=== PATIENT | female | born 1955 | race Caucasian/White ===

== ENCOUNTER → 2017-08-01 | Outpatient (CLI) | payer BC ==
[~2017-08-01] MED LIST: CIPR500 PO; CONEST.3 PO; INSLI100I; INSLI100I SC; LEVSOD50; LISI5 PO; OLME20 PO; PRAV20 PO; VITAMIN D PO
[2017-08-02 14:05] LABS: Stool Occult Bld Immuno 1 Negative (NEGATIVE); Stool Occult Bld Immuno 2 Negative (NEGATIVE)
== END | disposition home or self-care (01) ==
LOC: LAB EV 19:20
PROVIDERS: Internal Medicine Gastroenterology
DX: K57.30 Diverticulosis of large intestine without perforation or abscess without bleeding (principal)
CPT/HCPCS: 82274

== ENCOUNTER → 2017-08-17 | Outpatient (CLI) | payer BC | LOC: LAB SHORT 13:09 → LAB EV 13:09 | DX: L08.9 Local infection of the skin and subcutaneous tissue, unspecified (principal) | CPT/HCPCS: 87070; 87075; 87077; 87147; 87186; 87205 ==

== ENCOUNTER 2017-09-24 05:43 | Day surgery (SDC) | payer BC ==
[~2017-09-24 05:43] MED LIST changes: +ALBU90OI INH; +CHLO25B PO; +EXEM25 PO; +LEVO-T75 MCG PO; +MELO7.5 PO; +MULTI VITAMIN1 EACH PO; +Nitrostat0.4 MG SL; +OSTERA TABLET1 EACH PO; +Omeprazole20 M1; +Omeprazole20 M1 PO; +ROSU10TA PO; +SUMA25 PO; +VENL150ER PO
== END 2017-09-24 12:00 | disposition home or self-care (01) ==
LOC: MHTC 05:43
DX: I25.118 Atherosclerotic heart disease of native coronary artery with other forms of angina pectoris (principal); R94.39 Abnormal result of other cardiovascular function study; E10.9 Type 1 diabetes mellitus without complications; E78.5 Hyperlipidemia, unspecified; I10 Essential (primary) hypertension; E78.00 Pure hypercholesterolemia, unspecified; Z82.49 Family history of ischemic heart disease and other diseases of the circulatory system; Z88.2 Allergy status to sulfonamides; Z88.6 Allergy status to analgesic agent; Z91.040 Latex allergy status; Z79.4 Long term (current) use of insulin; E03.9 Hypothyroidism, unspecified; Z85.3 Personal history of malignant neoplasm of breast; G47.30 Sleep apnea, unspecified
CPT/HCPCS: 82947; 93454; 99152; 99153; C1769; C1894; J1644; J2250; J3010; J7030; J7040; Q9967

== ENCOUNTER 2018-09-30 04:54 | Emergency (ER) | payer BC ==
[~2018-09-30] VITALS: Ht 165.1 cm; Wt 72.6 kg
[2018-09-30 07:11] LABS: BASOPHILS ABSOLUTE AUTO 0.02 K/mm3 (0.00-0.23); BASOPHILS PERCENT AUTO 0 % (0-2); EOSINOPHILS ABSOLUTE AUTO 0.02 K/mm3 (0.00-0.68); EOSINOPHILS PERCENT AUTO 0 % (0-6); Hematocrit 42.7 % (33.0-51.0); Hemoglobin 14.1 g/dL (11.5-16.0); IMMATURE GRAN ABSOLUTE AUTO 0.08 K/mm3 (0.00-0.10); IMMATURE GRAN PERCENT AUTO 1 % (0-1); LYMPHOCYTES ABSOLUTE AUTO 0.83 K/mm3 (0.84-5.20); LYMPHOCYTES PERCENT AUTO 6 % (21-46); MONOCYTES ABSOLUTE AUTO 0.94 K/mm3 (0.16-1.47); MONOCYTES PERCENT AUTO 6 % (4-13); Mean Corpuscular HGB 28.7 pg (26.0-34.0); Mean Corpuscular Volume 87 fL (80-100); Mean Platelet Volume 10.4 fL (9.1-12.4); NEUTROPHILS ABSOLUTE AUTO 13.24 K/mm3 (1.96-9.15); NEUTROPHILS PERCENT AUTO 88 % (41-73); Platelet Count 223 K/mm3 (150-400); RDW Coefficient Variation 12.1 % (11.7-14.2); RDW Standard Deviation 38.3 fL (35.1-46.3); Red Blood Cell Count 4.92 M/mm3 (3.80-5.20); White Blood Cell Count 15.13 K/mm3 (4.00-11.30)
[2018-09-30] MEDS ORDERED: ATORVASTATIN CA80 MG PO (07:18)
[2018-09-30 07:33] LABS: Alanine Aminotransfer (ALT/SGP 57 U/L (12-78); Albumin, Blood 3.9 g/dL (3.4-5.0); Alk Phos 110 U/L (50-136); Anion Gap 8 mmol/L (6-16); Aspartate Aminotrans (AST/SGOT 43 U/L (12-37); Bilirubin, Total 0.7 mg/dL (0.1-1.0); Blood Urea Nitrogen 49 mg/dL (8-24); Bun/Creatinine Ratio 68.8 (12.0-20.0); CO2, Blood 26 mmol/L (21-32); Chloride, Blood 103 mmol/L (98-108); Creatinine, Blood 0.71 mg/dL (0.40-1.00); Glomerular Filtration Rate >60 (60-); Glucose, Blood 235 mg/dL (70-99); Potassium, Blood 4.3 mmol/L (3.5-5.5); Sodium, Blood 137 mmol/L (136-145); Total Protein, Blood 7.9 g/dL (6.4-8.2)
[2018-09-30] MEDS ORDERED: ONDA4ODT MM (08:24)
== END 2018-09-30 08:44 | disposition home or self-care (01) ==
LOC: ER 04:54
PROVIDERS: Emergency Medicine
DX: K29.70 Gastritis, unspecified, without bleeding (principal); R11.2 Nausea with vomiting, unspecified; E11.9 Type 2 diabetes mellitus without complications; I10 Essential (primary) hypertension; Z91.048 Other nonmedicinal substance allergy status; Z88.6 Allergy status to analgesic agent; Z88.2 Allergy status to sulfonamides; Z79.899 Other long term (current) drug therapy; Z79.4 Long term (current) use of insulin
CPT/HCPCS: 36415; 80053; 83690; 85025; 96361; 96374; 99283-25; J2405; J7030

== ENCOUNTER → 2020-02-13 | Outpatient (CLI) | payer BC, MEDICARE ==
[~2020-02-13] MED LIST changes: +ATORVASTATIN CA80 MG PO; +Aspir 8181 MG PO; +Crestor20 MG PO; +HUMALOG100 UNIT/1 XX; +Imitrex50 MG PO; +LEVSOD75 PO; +MOBIC15 MG PO; +MULTI-VITAMIN1 EAC2 PO; +Metoprolol Tart25 MG PO; +NITR.4SL SL; +OMEP20ER PO; +ONDA4ODT MM; +VITAMIN D32000 UNI1 PO; +Venlafaxine HC225 MG PO
== END | disposition home or self-care (01) ==
LOC: LAB SHORT 17:11 → LAB EV 17:11
DX: N39.0 Urinary tract infection, site not specified (principal)
CPT/HCPCS: 87077; 87086; 87186

== ENCOUNTER 2022-06-07 12:25 | Emergency (ER) | payer OTHER ==
[~2022-06-07] VITALS: Ht 162.6 cm; Wt 72.6 kg
[2022-06-07 13:05] LABS: BASOPHILS ABSOLUTE AUTO 0.02 K/mm3 (0.00-0.23); BASOPHILS PERCENT AUTO 0 % (0-2); EOSINOPHILS ABSOLUTE AUTO 0.03 K/mm3 (0.00-0.68); EOSINOPHILS PERCENT AUTO 0 % (0-6); Hematocrit 36.2 % (33.0-51.0); Hemoglobin 12.6 g/dL (11.5-16.0); IMMATURE GRAN ABSOLUTE AUTO 0.03 K/mm3 (0.00-0.10); IMMATURE GRAN PERCENT AUTO 0 % (0-1); LYMPHOCYTES ABSOLUTE AUTO 0.64 K/mm3 (0.84-5.20); LYMPHOCYTES PERCENT AUTO 8 % (21-46); MONOCYTES ABSOLUTE AUTO 0.81 K/mm3 (0.16-1.47); MONOCYTES PERCENT AUTO 10 % (4-13); Mean Corpuscular HGB 29.2 pg (26.0-34.0); Mean Corpuscular HGB Conc 34.8 g/dL (31.5-36.5); Mean Corpuscular Volume 84 fL (80-100); Mean Platelet Volume 10.2 fL (9.1-12.4); NEUTROPHILS ABSOLUTE AUTO 6.75 K/mm3 (1.96-9.15); NEUTROPHILS PERCENT AUTO 82 % (41-73); NRBC ABSOLUTE 0.02 K/mm3 (0.00-0.02); NRBC Auto 0.2 /100 WBC (0.0-0.2); Platelet Count 241 K/mm3 (150-400); RDW Coefficient Variation 12.7 % (11.7-14.2); RDW Standard Deviation 38.4 fL (35.1-46.3); Red Blood Cell Count 4.31 M/mm3 (3.80-5.20); White Blood Cell Count 8.28 K/mm3 (4.00-11.30)
[2022-06-07 13:15] LABS: Albumin, Blood 3.9 g/dL (3.4-5.0); Bilirubin, Total 0.5 mg/dL (0.1-1.0); Bun/Creatinine Ratio 49.3 (12.0-20.0); Calcium, Blood 9.1 mg/dL (8.5-10.1); Creatinine, Blood 0.67 mg/dL (0.40-1.00); Potassium, Blood 3.8 mmol/L (3.5-5.5); Total Protein, Blood 7.9 g/dL (6.4-8.2)
[2022-06-07 13:32] LABS: Influenza A, PCR NEGATIVE (NEGATIVE); Influenza B, PCR NEGATIVE (NEGATIVE); Resp Syncytial Virus, PCR NEGATIVE (NEGATIVE); SARS-Cov-2 (COVID-19) PCR, MMC NEGATIVE (NEGATIVE)
[2022-06-07 15:19] LABS: Base Excess Venous 2.8 mmol/L; Bicarbonate Venous 25.8 mmol/L (24.0-30.0); PCO2 Venous 50.6 mmHg (38-42); pH Blood Venous 7.36 (7.34-7.37)
[2022-06-07] MEDS ORDERED: ONDA4ODT MM (16:24)
== END 2022-06-07 16:50 | disposition home or self-care (01) ==
LOC: ER 12:25
PROVIDERS: Emergency Medicine; Physician Assistant
DX: K52.9 Noninfective gastroenteritis and colitis, unspecified (principal); E10.9 Type 1 diabetes mellitus without complications; I10 Essential (primary) hypertension; Z96.41 Presence of insulin pump (external) (internal); Z20.822 Contact with and (suspected) exposure to COVID-19; Z88.2 Allergy status to sulfonamides; Z88.8 Allergy status to other drugs, medicaments and biological substances; Z91.048 Other nonmedicinal substance allergy status; Z79.899 Other long term (current) drug therapy
CPT/HCPCS: 0241U; 36415; 80053; 82803; 82947; 83690; 83735; 85025; J7030; J7799

== ENCOUNTER → 2024-07-30 | Outpatient (CLI) | payer OTHER | LOC: LAB 09:28 → LAB SHORT 09:28 | DX: R32 Unspecified urinary incontinence (principal) | CPT/HCPCS: 87077; 87086; 87186 ==

== ENCOUNTER → 2025-01-16 | Outpatient (CLI) | payer OTHER ==
[2025-01-16 15:59] LABS: Creatinine, Urine Random 117.0 mg/dL (27.00-270.00); Microalb/Creat Ratio UR, Rand 26.154 mg/g (0.000-30.000); Microalbumin, Random Urine 30.6 mg/L (0.000-20.000)
== END | disposition home or self-care (01) ==
LOC: LAB SHORT 09:30 → LAB 09:30
PROVIDERS: Physician Assistant Medical
DX: E11.29 Type 2 diabetes mellitus with other diabetic kidney complication (principal); R80.9 Proteinuria, unspecified; R39.15 Urgency of urination
CPT/HCPCS: 82043; 82570; 87077; 87086; 87186

== ENCOUNTER 2025-02-25 08:31 | Day surgery (SDC) | payer OTHER ==
[~2025-02-25] VITALS: Ht 162.6 cm; Wt 75.3 kg
[~2025-02-25 08:31] MED LIST changes: +CELE100 PO; +Imdur30 MG PO; +Lisinopril2.5 MG PO; +NOVOLOG100 UNIT/3; +VENL75ER PO; -Venlafaxine HC225 MG PO
[2025-02-25 09:04] VITALS: BP 119/62
--- NOTE | 2025-02-25 09:12 | NUR ---
Ambulatory in Day Surgery. History, Chart, Medications and Allergies reviewed before start of procedure. Patient confirms NPO status and agrees with scheduled surgery. Pre-Op teaching done. Pt verbalizes understanding. Patient States Post-Procedure ride home has been arranged. Pt belongings returned to pt.
--- NOTE | 2025-02-25 09:51 | NUR ---
02/25/25 [id number] Linus Huffman History, Chart, Medications and Allergies reviewed before start of procedure.MONITOR INTACT WITH CONTINUOUS PULSE OXIMETRY, CONTINUOUS END TITAL CO2, 3-LEAD EKG AND INTERMITTENT BLOOD PRESSURE.See Anesthesia record.
[2025-02-25 10:36] VITALS: BP 102/50
[2025-02-25 10:48] VITALS: BP 120/51
--- NOTE | 2025-02-25 10:59 | NUR ---
Patient up to Ambulate independently. Gait steady. Discharge instructions reviewed with patient. Patient verbalizes understanding. Copy given to patient to take home. Patient States Post-Procedure ride home has been arranged. Discharged via wheelchair to private car for ride home. PT TOLERATING PO,REPORTS READY TO GO HOME.KEEP [address] JOHNSON[address]
== END 2025-02-25 10:59 | disposition home or self-care (01) ==
LOC: ORSCMMR 08:31 → ORD 09:45 → ORSCMMR 09:45
PROVIDERS: Internal Medicine Gastroenterology
PROC: 0DB48ZX Excision of Esophagogastric Junction, Via Natural or Artificial Opening Endoscopic, Diagnostic (ICD-10-PCS; principal; 2025-02-25 09:45)
PROC: 0DJD8ZZ Inspection of Lower Intestinal Tract, Via Natural or Artificial Opening Endoscopic (ICD-10-PCS; principal; 2025-02-25 09:45)
PROC: 0DB68ZX Excision of Stomach, Via Natural or Artificial Opening Endoscopic, Diagnostic (ICD-10-PCS; principal; 2025-02-25 09:45)
DX: K21.00 Gastro-esophageal reflux disease with esophagitis, without bleeding (principal); K31.7 Polyp of stomach and duodenum; Z12.11 Encounter for screening for malignant neoplasm of colon; Z86.0101 Personal history of adenomatous and serrated colon polyps; I25.10 Atherosclerotic heart disease of native coronary artery without angina pectoris; Z85.3 Personal history of malignant neoplasm of breast; E11.9 Type 2 diabetes mellitus without complications; E78.5 Hyperlipidemia, unspecified; F32.A Depression, unspecified; J45.909 Unspecified asthma, uncomplicated; G47.33 Obstructive sleep apnea (adult) (pediatric); E07.9 Disorder of thyroid, unspecified; Z79.82 Long term (current) use of aspirin; Z79.4 Long term (current) use of insulin; Z79.899 Other long term (current) drug therapy
CPT/HCPCS: 43239; G0105; 82947; 88305; 88342; J2704; J7120